=== PATIENT | male | born 1980 | race Caucasian/White ===

== ENCOUNTER 2017-01-08 23:59 | Emergency (ER) | payer OTHER ==
--- NOTE | ~2017-01-08 | CT2 ---
[facility] A Service of [facility] RADIOLOGY TEXT RESULTS PATIENT: GURDEEP GUERRA LOCATION: [facility] : [birth year] UNIT #: [id number] AGE: [address]: Karissa Farnsworth MD SEX: M ORDER DR: [id number] [facility] [address] [place], [place] [address] [id number] E MR#: [id number] Acc #: [id number] NAME: GURDEEP GUERRA. : 1980 SEX: M STUDY DATE/TIME: 01/09/2017 2:36 UNIT: JONNATHAN ROOM: STUDY DESCRIPTION: CT Abd and Pelv W Cont Attending Physician: Karissa Farnsworth M.D. Ordering Physician: Alex Kwong M.D. Primary Care Physician: Primary Care Physician No MEDICAL IMAGING REPORT This report is preliminary unless electronic signature is present EXAM CT abdomen and pelvis with contrast DATE 01/09/2017 HISTORY Nausea, vomiting and diarrhea for [address] abdomen and pelvis 01/09/2007 PROCEDURE 5 mm axial images from lung bases through the lesser trochanters after intravenous and enteric contrast administration. Sagittal and coronal reformatted images were obtained. This CT exam was performed with one or more of the following radiation dose reduction techniques: Automatic exposure control, adjustment of mA and/or kV according to patient size, and iterative reconstruction. FINDINGS ABDOMEN FINDINGS: No consolidative changes are seen within the lung bases. There is trace pericholecystic fluid, raising the possibility of cholecystitis in the appropriate clinical context. There is trace perihepatic ascites near the dome. No focal liver lesions identified. The spleen, pancreas, adrenals and right kidney are normal. Nonobstructing 3-mm stone is seen within the left mid kidney. The appendix is normal. PELVIS FINDINGS: Urinary bladder, prostate and rectum are normal. IMPRESSION [facility] A Service of [facility] RADIOLOGY TEXT RESULTS PATIENT: GURDEEP GUERRA LOCATION: [facility] : [birth year] UNIT #: [id number] AGE: [address]: Karissa Farnsworth MD SEX: M ORDER DR: 1. Pericholecystic fluid is present. Correlate clinically for cholecystitis symptoms. Gallbladder ultrasound may prove helpful for further evaluation. 2. Trace perihepatic fluid or ascites. 3. The appendix is normal. 4. Nonobstructing left renal stone. Dictated by... Peace Mccoy M.D. THIS IS AN ELECTRONICALLY VERIFIED REPORT Peace Mccoy M.D. at 01/09/2017 9:[address] [facility] TD: 01/09/2017 03:51 JOB #: [id number] MEDICAL IMAGING REPORT Page 1 of 1 COPY
[~2017-01-08 23:59] MED LIST: CILOXAN5 ML OP; IBUPROFEN PO; TYLENOL #3 PO; VICODIN 5/500 T1 TAB PO; VOLTAREN75 MG PO; ZOFRAN PO
[2017-01-09 01:23] LABS: URINE SOURCE CLEAN CATCH
[2017-01-09 01:31] LABS: URINE APPEARANCE CLEAR; URINE BLOOD NEG (NEG); URINE COLOR DK YELLOW; URINE GLUCOSE NEG (NEG); URINE KETONE NEG (NEG); URINE LEUKOCYTE ESTERASE 1+ (NEG); URINE NITRATE POS (NEG); URINE PH 7.5 (5-8); URINE PROTEIN TRACE (NEG); URINE SPECIFIC GRAVITY 1.021 (1.003-1.035)
[2017-01-09 01:34] LABS: URINE BACTERIA AUWI NEG (NEGATIVE); URINE SQUAMOUS EPITHELIAL CELL NONE SEEN /[HPF]; UWBCS1 AUWI 0-2 (0-5)
[2017-01-09 01:34] LABS: BASOPHIL% 0.3 % (0-2.5); EOSINOPHIL# 0.3 X10e3 (0-0.7); EOSINOPHIL% 3.1 % (0.0-7.0); HEMATOCRIT 45.4 % (38.0-50.0); HEMOGLOBIN 15.5 gm/dL (13.0-16.0); LYMPHOCYTE% 19.4 % (17.0-45.0); MEAN CELL VOLUME 88.2 FL (83-96); MEAN CORPUSCULAR HGB CONC 34.1 g/dL (30-36); MONOCYTE# 1.2 X10e3 (0-1.0); NEUTROPHIL# 6.7 X10e3 (1.5-7.1); NEUTROPHIL% 65.2 % (40-75); PLATELET COUNT 303 X10e3 (140-420); RED BLOOD COUNT 5.15 X10e (3.90-5.60); RED CELL DISTRIBUTION WIDTH 17.3 % (11.0-15.5); WHITE BLOOD COUNT 10.2 X10e3 (4.0-10.5)
[2017-01-09 01:37] LABS: DIFF IND NO
[2017-01-09 01:42] LABS: CULTURE INDICATED? NO
[2017-01-09 01:43] LABS: URINE BILIRUBIN POS (NEG)
[2017-01-09 01:50] LABS: INR 1.1
[2017-01-09 02:04] LABS: ALBUMIN SERUM 3.8 g/dL (3.5-5.0); BUN/CREATININE RATIO 11.42; CALCIUM SERUM 9.2 mg/dL (8.4-10.2); CREATININE SERUM 0.7 mg/dL (0.6-1.4); GLOM FILT RATE Estimated 123.2 mL/min (>60); POTASSIUM 3.6 mmol/L (3.5-5.1); PROTEIN TOTAL SERUM 7.5 g/dL (6.0-8.3)
[2017-01-09 02:05] LABS: BILIRUBIN,TOTAL 21.2 mg/dL (0.2-2.0)
[2017-01-09 02:18] LABS: BILIRUBIN, DIRECT 12.3 mg/dL (0.0-0.2); BILIRUBIN,INDIRECT 8.9 mg/dL (0.0-0.9)
== END 2017-01-09 04:02 | disposition home or self-care (01) ==
LOC: CED 23:59
PROVIDERS: Emergency Medicine
DX: B17.9 Acute viral hepatitis, unspecified (principal); F17.210 Nicotine dependence, cigarettes, uncomplicated
CPT/HCPCS: 36415; 74177; 80048; 80076; 81003; 82150; 83690; 85025; 85610; 85730; 96361; 96374; 99284; J2405; Q9967

== ENCOUNTER 2017-01-10 23:59 | Emergency (ER) | payer OTHER ==
--- NOTE | ~2017-01-10 | US67 ---
[facility] A Service of [facility] RADIOLOGY TEXT RESULTS PATIENT: GURDEEP GUERRA LOCATION: [facility] : [birth year] UNIT #: [id number] AGE: [address]: Tong Medina MD SEX: M ORDER DR: [id number] [facility] [address] [place], [place] [address] [id number] E MR#: [id number] Acc #: [id number] NAME: GURDEEP GUERRA. : 1980 SEX: M STUDY DATE/TIME: 01/11/2017 7:21 UNIT: JONNATHAN ROOM: STUDY DESCRIPTION: Gallbladder Attending Physician: Tong Medina M.D. Ordering Physician: lJuis Escobar P.A.-C. MEDICAL IMAGING REPORT This report is preliminary unless electronic signature is present EXAM Gallbladder ultrasound HISTORY Nausea and vomiting for a month. COMPARISON CT of the abdomen and pelvis from 2 days ago. FINDINGS Ultrasound shows the liver to be normal in appearance. There is no mass. The portal vein is patent with flow to the liver. The right kidney is 10.8 cm in length and appears normal. The common bile duct is 4.0 mm in diameter. The gallbladder is adequately distended. There is minimal pericholecystic fluid and the gallbladder is slightly thickened measuring 6.0 mm in thickness. No stones are visible. IMPRESSION 1. The gallbladder is abnormal with slight wall thickening and minimal pericholecystic fluid. No stones are identified. 2. The study is otherwise normal. Dictated by... Shan Lamas M.D. THIS IS AN ELECTRONICALLY VERIFIED REPORT Shan Lamas M.D. at 01/11/2017 1:49 PM Jun TD: 01/11/2017 08:32 JOB #: [id number] [facility] A Service of [facility] RADIOLOGY TEXT RESULTS PATIENT: GURDEEP GUERRA LOCATION: [facility] : 84 UNIT #: [id number] AGE: [address]: Tong Medina MD SEX: M ORDER DR: MEDICAL IMAGING REPORT Page 1 of 1 COPY
[2017-01-11 01:54] LABS: BASOPHIL% 0.2 % (0-2.5); EOSINOPHIL# 0.4 X10e3 (0-0.7); EOSINOPHIL% 4.5 % (0.0-7.0); HEMATOCRIT 43.1 % (38.0-50.0); HEMOGLOBIN 14.3 gm/dL (13.0-16.0); LYMPHOCYTE# 2.1 X10e3 (1.0-3.5); LYMPHOCYTE% 22.3 % (17.0-45.0); MEAN CELL VOLUME 90.6 FL (83-96); MEAN CORPUSCULAR HEMOGLOBIN 30.1 PG (28-34); MEAN CORPUSCULAR HGB CONC 33.3 g/dL (30-36); MEAN PLATELET VOLUME 11.6 FL (6.5-11.5); MONOCYTE% 10.8 % (3.0-12.0); NEUTROPHIL# 5.8 X10e3 (1.5-7.1); NEUTROPHIL% 62.2 % (40-75); RED BLOOD COUNT 4.76 X10e (3.90-5.60); RED CELL DISTRIBUTION WIDTH 17.9 % (11.0-15.5); WHITE BLOOD COUNT 9.3 X10e3 (4.0-10.5)
[2017-01-11 02:22] LABS: DIFF IND NO; PLATELET COUNT 278 X10e3 (140-420)
[2017-01-11 02:49] LABS: ALBUMIN SERUM 3.3 g/dL (3.5-5.0); BILIRUBIN,INDIRECT 5.2 mg/dL (0.0-0.9); BILIRUBIN,TOTAL 12.2 mg/dL (0.2-2.0); BUN/CREATININE RATIO 9.09; CALCIUM SERUM 8.9 mg/dL (8.4-10.2); CREATININE SERUM 1.1 mg/dL (0.6-1.4); GLOM FILT RATE Estimated 87.1 mL/min (>60); POTASSIUM 3.8 mmol/L (3.5-5.1); PROTEIN TOTAL SERUM 6.6 g/dL (6.0-8.3)
[2017-01-11 03:01] LABS: URINE SOURCE CLEAN CATCH
[2017-01-11 03:05] LABS: URINE APPEARANCE CLEAR; URINE BLOOD NEG (NEG); URINE COLOR DK YELLOW; URINE GLUCOSE NEG (NEG); URINE KETONE NEG (NEG); URINE LEUKOCYTE ESTERASE NEG (NEG); URINE NITRATE NEG (NEG); URINE PROTEIN NEG (NEG); URINE SPECIFIC GRAVITY 1.017 (1.003-1.035)
[2017-01-11 03:10] LABS: CULTURE INDICATED? NO; URINE BILIRUBIN POS (NEG)
[2017-01-17 01:54] LABS: HA AB IGM (HEPPAN) Nonreactive (()); HB CORE AB IGM (HEPPAN) Reactive (Nonreactive); HB S AG (HEPPAN) Reactive (Nonreactive); HEP C AB (HEPPAN) Nonreactive (Nonreactive); HEP C AB SIGNAL TO CUTOFF 0.04 ratio (<1.00)
== END 2017-01-11 09:00 | disposition home or self-care (01) ==
LOC: CED 23:59
PROVIDERS: Physician Assistant
DX: B17.9 Acute viral hepatitis, unspecified (principal); F17.210 Nicotine dependence, cigarettes, uncomplicated; Z98.890 Other specified postprocedural states; Z88.9 Allergy status to unspecified drugs, medicaments and biological substances
CPT/HCPCS: 36415; 76705; 80048; 80074; 80076; 81003; 82150; 83690; 85025; 87806; 96361; 96374; 99284; J2405

== ENCOUNTER 2017-03-26 09:33 | Emergency (ER) | payer SELFPAY ==
[~2017-03-26] VITALS: Ht 175.3 cm; Wt 81.6 kg
== END 2017-03-26 10:01 | disposition home or self-care (01) ==
LOC: CFTX 09:33 → CED 09:33 → CFTX 09:59
DX: J03.90 Acute tonsillitis, unspecified (principal); F17.210 Nicotine dependence, cigarettes, uncomplicated
CPT/HCPCS: 87880; 96372; 99283; J0561